=== PATIENT | male | born 1995 | race Two or more races ===

== ENCOUNTER 2023-07-15 23:27 | Emergency (ER) | payer MEDICAID ==
[~2023-07-15] VITALS: Ht 175.3 cm; Wt 75.7 kg
[2023-07-15] MEDS: TETRACAINE HCL 0.5% OPTH(EYE) SOLN 4ML LEFTEYE ONE (23:54)
[2023-07-15] MEDS: FLUORESCEIN SOD OPTH TEST STRIP LEFTEYE ONE (23:54)
[2023-07-16 00:05] VITALS: BP 128/75; TEMP 97.9; O2SAT 97
[2023-07-16] MEDS ORDERED: ERY05OO OP (01:12)
[2023-07-16 02:20] VITALS: PULSE 84; RESP 18
== END 2023-07-16 02:24 | disposition home or self-care (01) ==
LOC: ER 23:27
DX: S05.02XA Injury of conjunctiva and corneal abrasion without foreign body, left eye, initial encounter (principal); Z79.899 Other long term (current) drug therapy; X58.XXXA Exposure to other specified factors, initial encounter; Y93.89 Activity, other specified; Y92.89 Other specified places as the place of occurrence of the external cause; Y99.8 Other external cause status